=== PATIENT | female | born 1955 | race Caucasian/White ===

== ENCOUNTER → 2018-09-12 | Outpatient (CLI) | payer OTHER ==
[~2018-09-12] MED LIST: ACID CONTROL75 MG PO; ALLERGY RELIEF180 MG PO; AMITRIPTYLINE H25 M3 PO; APAP500 PO; CALCIUM 600 +1 EAC5 PO; CENTRUM COMPLE1 EACH PO; COLACE100 MG PO; ETODOLAC500 MG PO; HYDROCODON-ACE1 EAC5; HYDROCODONE-AP1 EAC6 PO; HYDROCODONE-APA1 TA1 PO; LEVAQUIN 500 M500 M2 PO; LEVOTHYROXIN0.175 MG PO; LEVOXYL PO; LOVENOX; MATZIM LA180 MG PO; MUCINEX600 MG PO; NORCO 10-325 T1 EACH PO; PREMARIN0.625 MG PO; PROBIOTIC1 EAC1 PO; UNICOMPLEX M TA1 TA1 PO; XARELTO10 MG PO; ZANTAC 150MG T150 MG PO; ZOFRAN ODT4 MG DISSOLVE
== END ==
LOC: MRI 08:44
DX: M47.26 Other spondylosis with radiculopathy, lumbar region (principal); M48.05 Spinal stenosis, thoracolumbar region; M51.16 Intervertebral disc disorders with radiculopathy, lumbar region; M79.609 Pain in unspecified limb

== ENCOUNTER → 2018-10-30 | Outpatient (CLI) | payer OTHER ==
[~2018-10-30] VITALS: Ht 165.1 cm; Wt 110.7 kg
[2018-10-30 09:45] VITALS: BP 157/101
--- NOTE | 2018-10-30 09:57 | NUR ---
Pain Clinic Assessment: 1. History of Osteoarthritis: Left Lower Extremity Left Upper Extremity Right Lower Extremity Right Upper Extremity History of Rheumatoid Arthritis: Not Applicable 2. Height: 5 ft. 5 in. 165.1 cm. Weight: 244.0 lb. oz. 110.678 kg. Patient's BMI: 40.6 3. Vital Signs: BP: 157/101 Pulse: 89 Resp: 20 Temp: 02 Sat: 98 ECG Mon: 4. Pain Intensity: 5 5. Fall Risk: Dizziness: N Needs help standing or walking: N Fallen in the last 3 months: N Fall risk comments: 6. Patient on Blood Thinner: None 7. History of Hypertension: N 8. Opioid Therapy greater than 6 weeks: N Opiate Contract Signed: 9. Risk Assessment Tool Provided: LOW 10. Functional Assessment Tool: 11. Recreational Drug Use: Never Drug Type: Tobacco Use: Current Every Day Smoker Tobacco Type: Cigarettes Amount or Packs/day: 1 How Many Years: 20 Alcohol Use: No Frequency: Quant:
--- NOTE | 2018-11-05 14:42 | HPC ---
[facility] [place] [address] PAIN MANAGEMENT CONSULTATION Name: NASIR GALLEGO Room #: REG MARIO Allison#: [id number] Admission: 10/30/18 ������������������ Attend Phys: Yunier Kelley DO Discharge: ������������������ Date of : 57 Report #: [id number] THIS REPORT FOR: //name// CC: Yunier Buitrago DATE OF SERVICE: 10/30/2018 CHIEF COMPLAINT: Left low back pain. HISTORY OF PRESENT ILLNESS: As you know, the patient is a 63-year-old female with longstanding history of low back symptoms that began years ago. She has undergone multiple surgeries to address lumbar radiculopathy. She continues to experience axial back pain located on the left side just above the fusion at the L4-L5 level. She reports the pain level anywhere from 5-10/10 depending on activity. She states her pain intensified in 06/2018, though she denies injury or trauma that may have led to symptom development. She followed up with her neurosurgeon, Dr. Rogelio Buitrago, who believes her symptoms may be related to facet arthropathy. She has been utilizing a foot bracing system during her rehab from left foot fusion and this may have led to her symptom development. She denies specific injury or trauma that may have led to symptom development. She has been referred to our service to discuss possible left L3-L4 intraarticular facet injection to determine if her symptom is generated from that area. The patient indicates today pain is continuous with intermittent exacerbations. She states pain is crushing and sharp when describing pain, places current pain score 5/10, daily average at 7/10, worst pain has been is 10/10. The patient states that walking, bending and lifting exacerbate symptoms, sitting, lying down and pressing her back against the wall tends to improve pain. She has been referred to our service to discuss the possibility of undergoing left L3-L4 intraarticular facet injection. PAST MEDICAL HISTORY: 1. Hypertension. 2. Fibromyalgia. 3. Osteoarthritis. 4. Chronic back symptoms. 5. Peptic ulcer disease. 6. Morbid obesity. PAST SURGICAL HISTORY: 1. Lumbar laminectomy x 2. 2. Lumbar fusion. 3. Cervical laminectomy. [facility] [address] [place] [address] PAIN MANAGEMENT CONSULTATION Name: NASIR GALLEGO Room #: REG [facility].#: [id number] Admission: 10/30/18 ������������������ Attend Phys: Yunier Kelley DO Discharge: ������������������ Date of : 57 Report #: [id number] 4. Bilateral carpal tunnel release. 5. History of brain biopsy. 6. Bilateral foot fusions. 7. Bilateral total knee arthroplasty. SOCIAL HISTORY: The patient is a smoker, 1 pack tobacco per day, has done so for years. Denies IV or illicit drug use. Denies any chronic alcohol use. 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 She is unaccompanied today. REVIEW OF SYSTEMS: Positive for fatigue and weakness, wearing corrective eyewear, shortness of breath with walking or lying flat, changes in bowel movements, nausea, vomiting, constipation interspersed with loose stools, peptic ulcer disease, frequent urination, nocturia, low back pain, excessive thirst, urination, heat and cold intolerance. All other review of systems negative per 12-point review of systems other than those listed in history of present illness. Pain impact score 32 of 70 indicating moderate interference of daily activities secondary to pain. ALLERGIES: OXYCODONE tall. 1. SHELLFISH. CURRENT MEDICATIONS: Ondansetron 4 mg p.r.n., docusate sodium 100 mg per day, hydrocodone 5/325 one tab every 8 hours p.r.n. pain, ranitidine 150 mg per day, multivitamin 1 tab per day, diltiazem 180 mg once a day, levothyroxine 175 mcg per day, amitriptyline 25 mg p.o. at bedtime, estrogen conjugated 0.625 mg once a day, etodolac 500 mg twice a day. IMAGING: MRI of the lumbar spine obtained 09/12/2018 shows advanced multilevel degenerative changes at the L3-L4 level. There is a noted interval fusion of the L4-L5 level. There is [id number] central canal stenosis at T12-L1 with effacement of the ventral thecal sac, severe left-sided neural foraminal narrowing at that level. PHYSICAL EXAMINATION: VITAL SIGNS: Blood pressure 157/101, pulse 89, respiratory rate 20 and unlabored. The patient is 98% on room air. Height 5 feet 5 inches tall, weight 244 pounds, BMI calculated 40.6. GENERAL: Well-developed, well-nourished, well-hydrated, class 3, morbidly obese 63-year-old female, appears stated age, pain is rated today at around 5/10. HEENT: Normocephalic, atraumatic. Pupils equal, round, reactive to light. Extraocular muscles are intact. Sclerae nonicteric without injection. NEUROLOGIC: Cranial nerves 2-12 grossly intact. Speech is fluent. The patient deemed a good historian. LUNGS: Decreased breath sounds bilaterally, prolonged expiratory phase. The patient does smell of tobacco smoke. [facility] [address] [place] [address] PAIN MANAGEMENT CONSULTATION Name: NASIR GALLEGO Room #: REG [facility]#: [id number] Admission: 10/30/18 ������������������ Attend Phys: Yunier Kelley DO Discharge: ������������������ Date of : 57 Report #: [id number] CARDIOVASCULAR: Regular. No appreciable gallop, no rub. ABDOMEN: Soft, obese, nontender. EXTREMITIES: Show no clubbing, no cyanosis, no edema. MUSCULOSKELETAL: The patient does have palpatory tenderness over the paraspinal musculature of lower lumbar spine on the left. Deep palpation in area causes intensification of pain. Well-healed surgical scars. Seated straight leg raising negative. Supine straight leg raising negative. Gloria's test is negative. Modified Gaenslen's positive for axial low back pain. Ankle clonus negative. Babinski is negative. Lumbar provocation testing is met with increased axial back pain on the left. ASSESSMENT: 1. Lumbosacral spondylosis without radiculopathy. 2. Facet arthropathy of the lumbar spine. 3. Chronic intractable pain. PLAN: 1. The patient has been referred to our service by her neurosurgeon, Dr. Rogelio Buitrago to be assessed for possible left L3-L4 intraarticular facet injection. The patient, as you are aware, has had a fusion at the L4-L5 level, which has led to increased arthritic changes at the L3-L4 level, likely contributing to the patient's overall pain. The patient's symptoms are unilateral on the left side and just above the fusion, which would correlate to the L3-L4 level. We have discussed with the patient the treatment options available for facet arthropathy. The following was discussed with the patient. We discussed physical therapy, stretching exercise, core strengthening and weight loss as a treatment option. We discussed also the effects of chronic tobacco use on chronic pain and our desire to have her discontinue this activity as it is contributing significantly to her pain perception. We discussed medication management utilizing nonsteroidal anti-inflammatories. We discussed adjunctive treatment options including myofascial release and acupuncture therapy. We discussed intra-articular facet injections for which the patient was referred to our clinic. We also discussed the possibility of undergoing rhizotomy to ablate the nerve leading to the facet joints at that level. We also discussed surgical fusion other surgical options. After reviewing the risks and benefits of all the proposed treatment options, the patient wishes to move forward with the requested intraarticular facet injection on the left side at the L3-L4 level. The patient was advised that due to third [employer] party payer restrictions, authorization had to be obtained before the patient could undergo the requested left L3, L4, facet injection. This authorization could take anywhere from 4-7 working days. We will begin the process immediately and contact the patient once this has been completed. We will see the patient back in followup visit once we have achieved the authorization for the patient to undergo the left L3, L4, intraarticular facet [address] [address] PAIN MANAGEMENT CONSULTATION Name: NASIR GALLEGO Room #: REG MARIO Cooper#: [id number] Admission: 10/30/18 ������������������ Attend Phys: Yunier Kelley DO Discharge: ������������������ Date of : 57 Report #: [id number] injection. We are hopeful will have the authorization within the next couple of days, so the patient can return to undergo the procedure to determine if her symptoms will be amenable to such procedures or treatment options. We wish to thank Dr. Buitrago for the referral of the patient to our clinic. We will keep you apprised of her response to treatment as we address this facet arthropathy pain. Again, we wish to thank you for the opportunity to see this patient in consultation. ��������������������������������������������� <ELECTRONICALLY SIGNED> ���������������������������������������� By: Yunier Kelley DO ��������������������������������������������� 11/05/18 1442 [id number] Yunier Kelley DO /nt
== END ==
LOC: PAIN 06:50
DX: M47.817 Spondylosis without myelopathy or radiculopathy, lumbosacral region (principal); I10 Essential (primary) hypertension; M19.90 Unspecified osteoarthritis, unspecified site; G89.4 Chronic pain syndrome; Z79.899 Other long term (current) drug therapy; Z91.013 Allergy to seafood

== ENCOUNTER → 2018-11-12 | Outpatient (CLI) | payer OTHER ==
[~2018-11-12] VITALS: Ht 165.1 cm; Wt 108.9 kg
[~2018-11-12] MED LIST changes: +HYDROCODON-ACE1 EAC8 PO
[2018-11-12 14:18] VITALS: BP 142/84
--- NOTE | 2018-11-12 14:38 | NUR ---
Pain Clinic Assessment: 1. History of Osteoarthritis: Left Lower Extremity Left Upper Extremity Right Lower Extremity Right Upper Extremity History of Rheumatoid Arthritis: Not Applicable 2. Height: 5 ft. 5 in. 165.1 cm. Weight: 240.0 lb. oz. 108.864 kg. Patient's BMI: 39.9 3. Vital Signs: BP: 142/84 Pulse: 86 Resp: 20 Temp: 02 Sat: 98 ECG Mon: 4. Pain Intensity: 8 5. Fall Risk: Dizziness: N Needs help standing or walking: Y Fallen in the last 3 months: N Fall risk comments: 6. Patient on Blood Thinner: None 7. History of Hypertension: N 8. Opioid Therapy greater than 6 weeks: N Opiate Contract Signed: 9. Risk Assessment Tool Provided: LOW 10. Functional Assessment Tool: 11. Recreational Drug Use: Never Drug Type: Tobacco Use: Current Every Day Smoker Tobacco Type: Cigarettes Amount or Packs/day: 1 PACK How Many Years: Alcohol Use: No Frequency: Quant:
--- NOTE | 2018-11-26 07:47 | HPC ---
[facility] [place] [address] PAIN MANAGEMENT CONSULTATION Name: NASIR GALLEGO Room #: REG MARIO Allison#: [id number] Admission: 11/12/18 Attend Phys: Yunier Kelley DO Discharge: Date of : 57 Report #: [id number] THIS REPORT FOR: //name// CC: Yunier Buitrago DATE OF SERVICE: 11/12/2018 REFERRING PHYSICIAN: Dr. Rogelio Buitrago. CHIEF COMPLAINT: Left low back pain. HISTORY OF PRESENT ILLNESS: As you know, the patient is a 63-year-old female with longstanding history of back pain symptoms that began years ago. She was referred to our clinic from Dr. Rogelio Buitrago, her neurosurgeon to trial left L3-L4 intra-articular facet injection. We saw the patient in consultation on 10/30/2018 where we began the prior authorization process for her to undergo the requested injection. We have received authorization for the patient to undergo the procedure today. She is placing pain today at 8/10. She has denied any new injury or trauma since our visit of 10/30/2018. She comes today to undergo left L3-L4 intra-articular facet injection per the request of her neurosurgeon. ALLERGIES: 1. SHELLFISH. 2. OXYCODONE. 3. TALWIN. CURRENT MEDICATIONS: See chart. SOCIAL HISTORY: The patient reports she is a pack a day smoker and has smoked that way for years. Denies IV or illicit drug use. Denies any chronic alcohol use. She is a mortgage processor, working, not receiving workmen's compensation, unaccompanied today. IMAGING: No new imaging available. PHYSICAL EXAMINATION: VITAL SIGNS: Blood pressure 142/84, pulse 86, respiratory rate 20 and unlabored. The patient is 98% on room air. Height 5 feet 5 inches tall, weight 240 pounds, BMI calculated 39.9. GENERAL: Well-developed, well-nourished, well-hydrated exogenously obese 63-year-old female appearing stated age, placing current pain score at 8/10. HEENT: Normocephalic, atraumatic. Pupils equal, round, reactive to light. EXTREMITIES: Show no clubbing, no cyanosis, and no edema. MUSCULOSKELETAL: Lower extremity strength equal and symmetrical 5/5. [address] [address] PAIN MANAGEMENT CONSULTATION Name: NASIR GALLEGO Room #: REG [facility] Allison#: [id number] Admission: 11/12/18 Attend Phys: Yunier Kelley DO Discharge: Date of : 57 Report #: [id number] Well-healed surgical scars over the lumbar spine. Seated straight leg raising negative. Supine straight leg raising negative. Gloria's test negative. Modified Gaenslen's positive for axial low back pain. ASSESSMENT: 1. Lumbosacral spondylosis without radiculopathy. 2. Facet arthropathy of the lumbar spine. 3. Chronic intractable pain. PLAN: 1. The patient returns today in followup visit having received precertification to undergo left L3-L4 intra-articular facet injection under fluoroscopic guidance. The patient and I discussed at length today the risks and the benefits of this procedure. These risks include but are not necessarily limited to bleeding, bruising, infection, worsening pain, no relief of pain, also risk of temporary or permanent muscle weakness, temporary or permanent nerve damage, possible paralysis and . The patient states understood and wished to proceed. 2. No medication changes made at today's visit. The patient will continue current medical therapy as previously prescribed. 3. We will see the patient back in followup visit on an as needed basis for the next in the series of intra-articular facet injections. She is to contact her neurosurgeon in regard to response to treatment provided. I am pleased to indicate that her VAS score prior to procedure was 8/10, VAS 10 minutes after procedure 0/10. DESCRIPTION OF PROCEDURE: Left L3-L4 intra-articular facet injection under fluoroscopic guidance. This is the first procedure of the first series that the patient is undergoing. After obtaining written consent, the patient was taken back to the fluoroscopy suite and placed in a prone position with a pillow under the abdomen to decrease the lumbar lordosis and to facilitate needle entry into the facet joints. The skin overlying the lumbosacral area was prepped and draped in an aseptic fashion. AP and lateral fluoroscopic imaging was obtained. Optimal position of the fluoroscope occurred when the joint line was first visualized. The facet joints were identified radiographically directed adjacent to the superior articular process of the caudad vertebrae. The skin overlying the target site of injection was anesthetized using 3 mL of 1% lidocaine. A 22 gauge 3.5 inch spinal needle with a bent tip was advanced towards the L3-L4 facet joint on the left side under fluoroscopic guidance. The firm posterior capsule had its characteristic feel and the needle was advanced a few additional millimeters beyond the joint capsule into the joint space, but not into the articular cartilage. After the joint space was entered and aspiration was [address] [address] PAIN MANAGEMENT CONSULTATION Name: NASIR GALLEGO Room #: TRISH [facility]#: [id number] Admission: 11/12/18 Attend Phys: Yunier Kelley DO Discharge: Date of : 57 Report #: [id number] negative for heme or CSF, 0.2 mL of Omnipaque was injected demonstrating a characteristic facet arthrogram. After negative aspiration for heme or CSF, 1.5 mL of a solution containing 1 mL, 40 mg/mL, 40 mg total triamcinolone and 0.5 mL bupivacaine 0.5% was slowly injected at each of one facet. The needle was then removed. There were no apparent complications. The patient tolerated the procedure well and was carefully escorted to the recovery room in stable condition. The VAS was 8/10 before the procedure and 0/10 ten minutes after the procedure. After meeting discharge criteria, the patient was discharged home. All prescriptions provided today were generated electronically. <ELECTRONICALLY SIGNED> By: Yunier Kelley DO 11/26/18 0747 [id number] Yunier Kelley DO /nt
== END | disposition home or self-care (01) ==
LOC: PAIN 06:59
DX: M47.817 Spondylosis without myelopathy or radiculopathy, lumbosacral region (principal); M54.5 Low back pain; M12.88 Other specific arthropathies, not elsewhere classified, other specified site; G89.29 Other chronic pain; E66.9 Obesity, unspecified; F17.210 Nicotine dependence, cigarettes, uncomplicated; Z88.8 Allergy status to other drugs, medicaments and biological substances; Z68.39 Body mass index [BMI] 39.0-39.9, adult; Z79.899 Other long term (current) drug therapy

== ENCOUNTER → 2019-08-01 | Outpatient (CLI) | payer OTHER | LOC: MRI 09:31 | PROVIDERS: ATTEND Family Medicine | DX: M50.13 Cervical disc disorder with radiculopathy, cervicothoracic region (principal); M48.03 Spinal stenosis, cervicothoracic region ==

== ENCOUNTER → 2019-09-30 | Outpatient (CLI) | payer OTHER ==
[~2019-09-30] VITALS: Ht 165.1 cm; Wt 103.4 kg
[~2019-09-30] MED LIST changes: +ACID CONTROLLER10 MG PO; -ZANTAC 150MG T150 MG PO
[2019-09-30 12:28] VITALS: BP 163/94
--- NOTE | 2019-09-30 12:31 | NUR ---
Pain Clinic Assessment: 1. History of Osteoarthritis: Left Lower Extremity Left Upper Extremity Right Lower Extremity Right Upper Extremity History of Rheumatoid Arthritis: Not Applicable 2. Height: 5 ft. 5 in. 165.1 cm. Weight: 228.0 lb. oz. 103.420 kg. Patient's BMI: 37.9 3. Vital Signs: BP: 163/94 Pulse: 89 Resp: 16 Temp: 02 Sat: 98 ECG Mon: 4. Pain Intensity: 6 5. Fall Risk: Dizziness: N Needs help standing or walking: N Fallen in the last 3 months: N Fall risk comments: 6. Patient on Blood Thinner: None 7. History of Hypertension: Y 8. Opioid Therapy greater than 6 weeks: N Opiate Contract Signed: 9. Risk Assessment Tool Provided: LOW 10. Functional Assessment Tool: 11. Recreational Drug Use: Never Drug Type: Tobacco Use: Current Every Day Smoker Tobacco Type: Cigarettes Amount or Packs/day: 1 How Many Years: 25 Alcohol Use: No Frequency: Quant:
--- NOTE | 2019-10-01 11:01 | HPC ---
[facility] [address] [place] [address] PAIN MANAGEMENT CONSULTATION Name: NASIR GALLEGO Room #: REG MARIO Allison#: [id number] Admission: 09/30/19 Attend Phys: Yunier Kelley DO Discharge: Date of : 57 Report #: [id number] THIS REPORT FOR: cc: Yunier Crowley James A. DO Johnson, James E. DO ~ DATE OF SERVICE: 09/30/2019 REFERRING PHYSICIAN: Dr. Rogelio Buitrago. CHIEF COMPLAINT: Neck pain, bilateral upper extremity pain with paresthesias. HISTORY OF PRESENT ILLNESS: As you know, the patient is a 64-year-old female who has been referred to our service by her neurosurgeon, Dr. Yuri You to undergo cervical epidural injections under fluoroscopic guidance to address cervical radiculopathy secondary to cervical spinal stenosis. The patient denies injury or trauma that may have led to symptom development. The patient states pain began 07/21/2019 and progressively worsened. She trialled conservative treatment options, but noted no significant pain improvement. She states that working at her desk and doing paperwork exacerbate symptoms. Putting her arms at her side and lying on her back tends to improve pain. She indicates she has difficulty at night, sleeping due to ongoing pain. She has to be in specific positions due to her gastroesophageal reflux disease and this places her in positions, which exacerbated her neck pain. She indicates pain begins in the neck, radiates to the arms, right greater than left. There is noted numbness, tingling and paresthesias based on her report. She has been referred to our service by her neurosurgeon to undergo cervical epidural injections. The patient indicates today her pain is continuous. She describes the pain as shooting, burning, sharp, numbness and tingling. Places current pain score at 6/10, daily average at 6-8/10, worst pain has been is 10/10. The patient states that riding, lifting and carrying exacerbate symptoms. Pain is improved with cervical extension and straightening both arms at her side. She has been referred to our service to discuss treatment options for cervical radiculopathy including requested cervical epidural injections. PAST MEDICAL HISTORY: 1. Osteoarthritis. 2. Hypertension. 3. Osteoporosis. 4. Peptic ulcer disease. 5. Gastroesophageal reflux disease. PAST SURGICAL HISTORY: [facility] [address] [place] [address] PAIN MANAGEMENT CONSULTATION Name: NASIR GALLEGO Room #: REG CLJeffrey Farmer.#: [id number] Admission: 09/30/19 Attend Phys: Yunier Kelley DO Discharge: Date of : 57 Report #: [id number] 1. Lumbar back surgery x 5. 2. Cervical laminectomy. 3. Brain biopsy. 4. Fusion of the foot. 5. Hysterectomy. 6. Bilateral total knee replacements. 7. Carpal tunnel release x 2. 8. Coccygectomy. SOCIAL HISTORY: The patient is an everyday smoker, smoking 1-pack of tobacco per day. She has done so for 25 years. She denies IV or illicit drug use. Denies any chronic alcohol use. She is working, not receiving workmen's compensation. She is unaccompanied at today's visit. ALLERGIES: TALWIN, PERCODAN, PERCOCET, SHELLFISH. CURRENT MEDICATIONS: Hydrocodone/acetaminophen 7.5/325 one tab every 8 hours p.r.n. for pain, famotidine 10 mg per day, multivitamin 1 tab per day, diltiazem LA 180 mg once a day, levothyroxine 175 mcg per day, amitriptyline 25 mg p.o. at bedtime, Premarin 0.625 mg once a day, etodolac 500 mg twice a day. REVIEW OF SYSTEMS: Positive for neck pain; bilateral lower extremity pain, right greater than left; gastroesophageal reflux disease; osteoarthritis; heat and cold intolerance due to hypothyroidism; insomnia; seasonal allergies. All other review of systems negative per 12-point review of systems other than those listed in history of present illness. Pain impact score 36/70 indicating moderate interference of daily activities secondary to pain. PQRS: The patient has known arthritic changes of the bilateral hips, lumbar spine and cervical spine. No rheumatoid arthritis. She is placing pain intensity at 6/10. She is not a fall risk nor has she had a fall in last 6 months. She is not on blood thinners, but is treated for hypertension. She is on opioids, but not chronic in nature. She has a low opiate addiction potential. Pain impact is 36/70, moderate interference of daily activities secondary to pain. IMAGING: MRI cervical spine obtained 08/01/2019 shows multilevel generalized disk bulging throughout the cervical spine, C3-C4 shows facet hypertrophy compromising the exiting right C4 nerve root. No neural foraminal stenosis on the left. At the C4-C5 mild generalized disk bulge with congenitally narrowed canal, moderate central canal stenosis measuring 7 mm, [id number] left neural foraminal stenosis due to uncovertebral joint hypertrophy, mild right neural foraminal stenosis. C5-C6 shows [id number] left eccentric generalized disk bulge. This combined with congenital narrowing of the canal leads to moderate central canal stenosis. Severe left and [id number]-[id number] right neural foraminal stenosis. C6-C7 shows moderate broad-based disk bulge, [facility] [address] [place] [address] PAIN MANAGEMENT CONSULTATION Name: NASIR GALLEGO Room #: REG [facility]#: [id number] Admission: 09/30/19 Attend Phys: Yunier Kelley DO Discharge: Date of : 57 Report #: [id number] moderate central canal stenosis. Severe neural foraminal stenosis due to uncovertebral joint hypertrophy bilaterally. PHYSICAL EXAMINATION: VITAL SIGNS: Blood pressure 163/94, pulse 89, respiratory rate 16 and unlabored. The patient is 98% on room air. Height 5 feet 5 inches tall, weight 228 pounds, BMI calculated 37.9. GENERAL: Well-developed, well-nourished, well-hydrated exogenously obese 64-year-old female appearing stated age, placing current pain score 6/10. HEENT: Normocephalic, atraumatic. Pupils equal, round and reactive. NEUROLOGIC: Speech fluent. LUNGS: Clear, no wheeze, rhonchi or rales. CARDIOVASCULAR: Regular. No appreciable gallop, no rub. ABDOMEN: Soft, obese, normoactive bowel sounds. EXTREMITIES: Show no clubbing, no cyanosis, and no edema. MUSCULOSKELETAL: Upper extremity strength equal and symmetrical 5/5, intact to light touch from C5 through T1 dermatomes. Deep tendon reflexes are equal and symmetrical at biceps, brachialis and triceps. Spurling's test positive on the right. Muscle bulk and tone is equal and symmetrical in comparing the left upper extremity to right. Cervical range of motion is restricted to mild to the left and moderate to the right. ASSESSMENT: 1. Cervical radiculopathy. 2. Central canal stenosis of the cervical spine. 3. Severe neural foraminal stenosis of the cervical spine. 4. Cervical facet arthropathy. 5. Cervical spondylosis with radiculopathy. 6. Chronic intractable pain. PLAN: 1. Based on today's physical exam and the history the patient has provided, the description the patient uses in regards to pain as well as location of symptoms, the likely source of the patient's pain is a cervical radiculopathy. The patient and I discussed the findings of the physical exam and correlated those to the findings of her MRI dated 08/01/2019. After discussion of the findings of her MRI and the physical exam findings, which took place over an 18-minute period of time, we then discussed the treatment options that would be of benefit to treat cervical radiculopathy. We discussed the following with the patient today. We discussed physical therapy, stretching exercises and traction techniques as a treatment option. The patient apparently has tried this in the past, but did not notice much in its effect, but would consider this as an option if this was the only treatment course. We discussed medication management with suggestions treatment, adding neuropathic pain medication such as amitriptyline, [facility] [address] [place] [address] PAIN MANAGEMENT CONSULTATION Name: NASIR GALLEGO Room #: REG MARIO Cooper#: [id number] Admission: 09/30/19 Attend Phys: Yunier Kelley DO Discharge: Date of : 57 Report #: [id number] nortriptyline, Cymbalta, Lyrica or gabapentin. We discussed cervical epidural injections under fluoroscopic guidance for which the patient was referred to our clinic. We also discussed surgical decompression of the central canal and neural foramen. After reviewing the risks and benefits of all proposed treatment options, the patient chose to move forward with the requested cervical epidural injection. 2. Due to third democrat payer restrictions, authorization will have to be obtained before the patient could undergo a cervical epidural injection. Authorization could take anywhere from 4-7 working days. We will begin this process immediately and contact the patient once it has been completed. We are hopeful we can obtain this authorization quickly and have the patient return to undergo the requested cervical epidural injection. 3. No medication changes made at today's visit. The patient will continue current medical therapy as previously prescribed. 4. We will see the patient back in followup visit for the first in a series of cervical epidural injections once this prior authorization has been completed. 5. We wish to thank Dr. Yuri You for the opportunity to see this patient in consultation. We will keep you apprised of her response to treatment as we address cervical radiculopathy due to central canal and neural foraminal stenosis. Again, we wish to thank Dr. You for the opportunity to see the patient in consultation. <ELECTRONICALLY SIGNED> By: Yunier Kelley DO 10/01/19 1101 [id number] Yunier Kelley DO /nt
== END ==
LOC: PAIN 06:56
PROVIDERS: ATTEND Anesthesiology Pain Medicine
DX: G89.29 Other chronic pain (principal); M48.02 Spinal stenosis, cervical region; M46.82 Other specified inflammatory spondylopathies, cervical region; M47.22 Other spondylosis with radiculopathy, cervical region; M19.90 Unspecified osteoarthritis, unspecified site; I10 Essential (primary) hypertension; M81.0 Age-related osteoporosis without current pathological fracture; K21.9 Gastro-esophageal reflux disease without esophagitis; Z90.710 Acquired absence of both cervix and uterus; Z96.653 Presence of artificial knee joint, bilateral; Z98.890 Other specified postprocedural states; Z72.0 Tobacco use; Z88.8 Allergy status to other drugs, medicaments and biological substances; Z68.37 Body mass index [BMI] 37.0-37.9, adult; Z79.891 Long term (current) use of opiate analgesic; Z79.899 Other long term (current) drug therapy

== ENCOUNTER → 2019-10-15 | Outpatient (CLI) | payer OTHER ==
[~2019-10-15] VITALS: Ht 165.1 cm; Wt 103.4 kg
[2019-10-15 14:10] VITALS: BP 157/84
--- NOTE | 2019-10-15 14:17 | NUR ---
Pain Clinic Assessment: 1. History of Osteoarthritis: Left Lower Extremity Left Upper Extremity Right Lower Extremity Right Upper Extremity History of Rheumatoid Arthritis: Not Applicable 2. Height: 5 ft. 5 in. 165.1 cm. Weight: 228.0 lb. oz. 103.420 kg. Patient's BMI: 37.9 3. Vital Signs: BP: 157/84 Pulse: 97 Resp: 20 Temp: 02 Sat: 95 ECG Mon: 4. Pain Intensity: 6 5. Fall Risk: Dizziness: N Needs help standing or walking: N Fallen in the last 3 months: N Fall risk comments: 6. Patient on Blood Thinner: None 7. History of Hypertension: Y 8. Opioid Therapy greater than 6 weeks: N Opiate Contract Signed: 9. Risk Assessment Tool Provided: LOW 10. Functional Assessment Tool: 11. Recreational Drug Use: Never Drug Type: Tobacco Use: Current Every Day Smoker Tobacco Type: Amount or Packs/day: How Many Years: Alcohol Use: No Frequency: Quant:
--- NOTE | 2019-10-22 12:44 | HPC ---
[facility] [address] [place] [address] PAIN MANAGEMENT CONSULTATION Name: NASIR GALLEGO Room #: REG MARIO Allison#: [id number] Admission: 10/15/19 Attend Phys: Yunier Kelley DO Discharge: Date of : 57 Report #: [id number] THIS REPORT FOR: cc: Yunier Crowley James A. DO Johnson, James E. DO ~ DATE OF SERVICE: 10/15/2019 CHIEF COMPLAINT: Neck pain, bilateral upper extremity pain with paresthesias. HISTORY OF PRESENT ILLNESS: As you know, the patient is a 64-year-old female referred to our service by her neurosurgeon, Dr. Yuri You, to trial epidural injection under fluoroscopic guidance to determine if her symptoms of cervical radiculopathy would improve with injection therapy. We have received authorization from the patient's third republican payer to undergo the procedure today. She is placing her pain today at a level of 6/10. She has had no changes in medical history since our visit of 09/30/2019 where she was diagnosed with cervical radiculopathy secondary to central canal stenosis of the cervical spine and neural foraminal stenosis. She indicates no new injury or trauma that led to continuation of pain. ALLERGIES: TALWIN, PERCODAN, PERCOCET, SHELLFISH. CURRENT MEDICATIONS: Hydrocodone, famotidine, multivitamin, diltiazem, levothyroxine, amitriptyline, Premarin, etodolac. SOCIAL HISTORY: The patient denies IV or illicit drug use. Denies any chronic alcohol use. She is an everyday smoker, smoking 1 pack tobacco per day and she has done so for greater than 25 years. She is working, not receiving workmen's compensation, unaccompanied today. IMAGING: No new imaging is available. PQRS: The patient has known arthritic changes of bilateral hips, lumbar spine and cervical spine. No rheumatoid arthritis. Pain today is rated at 6/10. She is not a fall risk nor has she had a fall in last 3 months. She is not on blood thinners, but is treated for hypertension. She is on opioids, has a low opioid addiction potential. Pain impact today 36/70, moderate interference of daily activities secondary to pain. PHYSICAL EXAMINATION: VITAL SIGNS: Blood pressure 157/84, pulse is 97, respiratory rate 20 and unlabored. The patient is 95% on room air. Height 5 feet 5 inches tall, weight 228 pounds, BMI calculated 37.9. GENERAL: Well-developed, well-nourished, well-hydrated 64-year-old female [address] [address] PAIN MANAGEMENT CONSULTATION Name: NASIR GALLEGO Room #: REG CLJeffrey Cooper#: [id number] Admission: 10/15/19 Attend Phys: Yunier Kelley DO Discharge: Date of : 57 Report #: [id number] appearing stated age, pain is rated today at around 6/10. HEENT: Normocephalic, atraumatic. Pupils equal, round and reactive. EXTREMITIES: Show no clubbing, no cyanosis, and no appreciable edema. MUSCULOSKELETAL: Upper extremity strength equal and symmetrical 5/5, intact to light touch from C5 through T1 dermatomes. Spurling's test positive on the right. ASSESSMENT: 1. Cervical radiculopathy. 2. Central canal stenosis of the cervical spine. 3. Severe neural foraminal stenosis of the cervical spine. 4. Cervical facet arthropathy. 5. Cervical spondylosis with radiculopathy. 6. Chronic intractable pain. PLAN: 1. The patient returns today in followup visit having received authorization to undergo cervical epidural injection under fluoroscopic guidance per the request of her neurosurgeon, Dr. Yuri You. The patient has been advised of the risks and the benefits of a cervical epidural injection. These risks include, but are not necessarily limited to; bleeding, bruising, infection, worsening pain, no relief of pain, temporary or permanent muscle weakness, temporary or permanent nerve damage, possible paralysis and . The patient states understood and wished to proceed. 2. No medication changes made at today's visit. The patient will continue current medical therapy as prior prescribed. 3. We will see the patient back in followup visit on an as needed basis for possible next in the series of cervical epidural injections. We have tentatively placed the patient in an appointment in 30 days. PROCEDURE NOTE DESCRIPTION OF PROCEDURE: C7-T1 cervical epidural steroid injection under fluoroscopic guidance. After obtaining written consent, the patient was taken back to fluoroscopy suite, placed in prone position with separate pillows under chest and forehead to decrease cervical lordosis. Skin overlying cervical area then prepped and draped in aseptic fashion. C7-T1 cervical interspace was identified by AP fluoroscopy. Skin and subcutaneous tissue overlying target site injection anesthetized with 3 mL of 1% lidocaine. A 20-gauge 3-1/2 inch Tuohy needle advanced under fluoroscopic guidance towards the epidural space using midline approach. Epidural space identified using loss of resistance to air technique. After negative aspiration for heme or cerebrospinal fluid, 1 mL of Isovue injected. Cervical epidurogram confirmed [address] [address] PAIN MANAGEMENT CONSULTATION Name: NASIR GALLEGO Room #: REG MARIO Cooper#: [id number] Admission: 10/15/19 Attend Phys: Yunier Kelley DO Discharge: Date of : 57 Report #: [id number] using both AP and lateral fluoroscopy. After negative aspiration for heme or cerebrospinal fluid, 5 mL of a solution containing 2 mL 40 mg per mL, 80 mg total triamcinolone along with 3 mL of lidocaine 1% injected slowly. Needle retracted custodial, flushed with 1 mL of 1% lidocaine and then removed. Sterile bandage placed over injection site. No new motor deficits present in the upper extremities following procedure. The patient tolerated procedure well, carefully escorted to recovery room in stable condition. No apparent complications. After meeting discharge criteria, the patient discharged home. <ELECTRONICALLY SIGNED> By: Yunier Kellye DO 10/22/19 1244 [id number] Yunier Kelley DO /nt
== END ==
LOC: PAIN 06:57
PROVIDERS: ATTEND Anesthesiology Pain Medicine
DX: M47.22 Other spondylosis with radiculopathy, cervical region (principal); M48.02 Spinal stenosis, cervical region; G89.29 Other chronic pain; M12.88 Other specific arthropathies, not elsewhere classified, other specified site; Z79.899 Other long term (current) drug therapy; Z91.013 Allergy to seafood; Z88.8 Allergy status to other drugs, medicaments and biological substances; Z87.891 Personal history of nicotine dependence

== ENCOUNTER → 2020-02-16 | Outpatient (CLI) | payer OTHER | LOC: LAB 11:33 | PROVIDERS: ATTEND Family Medicine | DX: Z20.828 Contact with and (suspected) exposure to other viral communicable diseases (principal) ==

== ENCOUNTER 2020-08-10 16:23 | Inpatient (IN) | payer OTHER ==
[~2020-08-10] VITALS: Ht 165.1 cm; Wt 101.6 kg
[~2020-08-10 16:23] MED LIST changes: -TACTINAL325 MG PO
[2020-08-10 16:35] VITALS: BP 164/92
[2020-08-10 17:05] LABS: HEMATOCRIT 46.2 % (37.0-47.0); HEMOGLOBIN 15.2 gm/dL (12.0-15.0); MCH 28.9 pg (26.0-34.0); MCV 87.6 fL (80.0-100.0); PLATELET COUNT 264 thou/uL (150-400); RBC 5.27 mil/uL (4.20-5.00); RDW 13.4 % (10.5-14.5)
[2020-08-10 18:03] LABS: ALBUMIN 3.9 g/dL (3.4-5.0); CALCIUM 9.9 mg/dL (8.5-10.1); CREATININE 0.9 mg/dL (0.6-1.0); POTASSIUM 3.5 mmol/L (3.5-5.1); TOTAL BILIRUBIN 1.1 mg/dL (0.2-1.0); TOTAL PROTEIN 8.2 g/dL (6.4-8.2)
[2020-08-10 18:10] LABS: URINE BLOOD 1+ (Negative); URINE CLARITY CLEAR; URINE COLOR YELLOW; URINE GLUCOSE-RANDOM* NEGATIVE (Negative); URINE KETONES TRACE (Negative); URINE LEUKOCYTES-REFLEX NEGATIVE (Negative); URINE NITRITE-REFLEX NEGATIVE (Negative); URINE PROTEIN (DIPSTICK) 2+ (Negative); URINE SPECIFIC GRAVITY <= 1.005 (1.005-1.035); URINE UROBILINOGEN 0.2 E.U./dl (0.2-1.0)
[2020-08-10 18:11] LABS: ABSOLUTE NEUTROPHILS 26.4 thou/uL (1.4-8.2)
[2020-08-10 18:16] LABS: ICTOTEST (BILI CONFIRMATORY) Negative (Negative); URINE BILIRUBIN NEGATIVE (Negative)
[2020-08-10 18:22] LABS: MUCUS 0-3 Light strn/LPF (None Seen); SQUAMOUS 0-3 Few /LPF (0-3)
[2020-08-10 18:23] LABS: BACTERIA-REFLEX 1-9 Few /HPF (None Seen); CASTS None Seen /LPF (None Seen); CRYSTALS None Seen /LPF (None Seen); URINE RBC >20 Many /HPF (NONE SEEN); URINE WBC-REFLEX 0-5 Rare /HPF (0-5)
[2020-08-10] MEDS ORDERED: TACTINAL325 MG PO (18:55)
[2020-08-10] MEDS ORDERED: MUCINEX600 MG PO (18:55)
[2020-08-10 20:28] VITALS: BP 166/94
[2020-08-10 20:29] VITALS: BP 166/94
[2020-08-10 21:29] VITALS: BP 152/99
--- NOTE | 2020-08-10 22:00 | NUR ---
RECIEVED PT FROM ED . UPON ARRIVAL UNIT PT HAVE NG IN RIGHT NARE TAPED , PLACE NG TO SUCTION 100 ML RETURN, DATA BASE COMPLETED AND ASSESSMENT COMPLETED. DISCUSSED PLAN OF CARE PT VERBALIZED UNDERSTANDING AND AGREEABLE.
[2020-08-11 04:41] VITALS: BP 139/85
[2020-08-11 05:49] LABS: ABSOLUTE NEUTROPHILS 14.7 thou/uL (1.4-8.2); BASOPHILS 0.5 % (0.0-2.0); EOSINOPHILS 0.1 % (0.0-3.0); HEMATOCRIT 45.4 % (37.0-47.0); HEMOGLOBIN 15.2 gm/dL (12.0-15.0); LYMPHOCYTES 8.7 % (24.0-44.0); MCH 29.3 pg (26.0-34.0); MCHC 33.6 g/dL (28.0-37.0); MCV 87.4 fL (80.0-100.0); MONOCYTES 6.7 % (1.0-8.0); RDW 13.4 % (10.5-14.5); WBC 17.5 thou/uL (4.0-11.0)
[2020-08-11 05:58] LABS: PLATELET COUNT 383 thou/uL (150-400)
[2020-08-11 06:05] LABS: CALCIUM 9.2 mg/dL (8.5-10.1); CREATININE 0.8 mg/dL (0.6-1.0); MAGNESIUM 2.5 mg/dL (1.8-2.4); POTASSIUM 3.4 mmol/L (3.5-5.1)
[2020-08-11 07:10] VITALS: BP 128/73
--- NOTE | 2020-08-11 13:43 | NUR ---
ASSESSMENT: CM REVIEWED CHART AND MET WITH PATIENT AT THE BEDSIDE. PT IS ALERT AND ORIENTED X4. PT HAS SBO AND CURRENTLY HAS HG. PT REPORTS SHE LIVES AT HOME WITH HER SISTER IN A HOUSE. PT REPORTS THREE STEPS WITH HANDRAIL TO GET INTO THE HOME BUT ALSO REPORTS HAVING A RAMP. PT REPORTS SHE NORMALLY USES A CANE FOR AMBULATION BUT DOES HAVE A WALKER TO USE. PT REPORTS HAVING A HANDICAP SHOWER AND HAS A GRAB BAR AND CHAIR. PT REPORTS HAVING HH IN THE PAST BUT UNSURE THE AGENCY. PT HAS NEVER BEEN TO POST ACUTE CARE. CM DISCUSSED ROLE. PT IS HOPEFUL SHE WILL BE ABLE TO RETURN HOME WITH NO NEEDS. 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 CM WILL CONTINUE TO FOLLOW TO ASSIST NEEDED.
[2020-08-11 15:32] VITALS: BP 143/85
--- NOTE | 2020-08-11 18:41 | NUR ---
PT ALERT AND ORIENTED TIMES FOUR. VSS. NG TUBE INPLACE TO LIWS. PT C/O PAIN AND NEAUSEA. PRN PAIN MEDICATIONS GIVEN WITH GOOD RELEIF. PT UP TO BSC WITH STANDBY ASSIST. WILL CONTINUE TO MONITOR.
[2020-08-11 19:12] VITALS: BP 154/89
[2020-08-12 07:23] VITALS: BP 151/96
[2020-08-12 07:48] LABS: ALBUMIN 3.4 g/dL (3.4-5.0); CREATININE 0.8 mg/dL (0.6-1.0); PHOSPHORUS 3.7 mg/dL (2.6-4.7); POTASSIUM 3.7 mmol/L (3.5-5.1)
[2020-08-12 07:53] LABS: HEMATOCRIT 45.6 % (37.0-47.0); HEMOGLOBIN 15.2 gm/dL (12.0-15.0); MCH 29.3 pg (26.0-34.0); MCHC 33.3 g/dL (28.0-37.0); MCV 88.2 fL (80.0-100.0); RBC 5.17 mil/uL (4.20-5.00); RDW 13.5 % (10.5-14.5); WBC 16.5 thou/uL (4.0-11.0)
[2020-08-12 09:52] VITALS: BP 157/79
--- NOTE | 2020-08-12 12:58 | NUR ---
ON-GOING ASSESSMENT: CM REVIEWED CHART. PT STILL HAS NG AND WILL LIKELY NEED SURGERY. SURGERY IS ON THE CASE. CM WILL CONTINUE TO FOLLOW TO ASSIST NEEDED.
[2020-08-12 17:45] VITALS: BP 151/110
[2020-08-12 19:40] VITALS: BP 149/87
--- NOTE | 2020-08-12 19:56 | NUR ---
PT TRANSFER FROM AND CAME FROM OR DIRECTLY AFTER PROCEDURE OF REMOVING BOWEL OBSTRUCTION. HIGHTOWER INSERTED IN THE OR. HIGHTOWER CARE GIVEN. PATIENT IS A&O*4, 2L OXYGEN, NPO, NG TUBE ON INTERMITENT SUCTION. PATIENT IS IN BEDREST AND HAVE PAIN OF POSTSUGREGY. IV MORPHINE GIVEN ONCE AND IV ABX GIVEN ON THE FLOOR. DUE TO THE MEDICINE WAS NOT AVLIABLE TO GIVE THE IV METOPROLOL, PASSED TO NEGATIVE NOTCHER NURSE ESTUARDO TO GIVE IT TO PATIENT FOR HIGH BLOOD PRESSURE 151/110 AND HIGH HR 110. WILL KEEP MONITOR VS , I&O AND SAFETY.
[2020-08-12 23:24] VITALS: BP 129/86
[2020-08-13 05:15] VITALS: BP 139/79
[2020-08-13 05:25] LABS: HEMOGLOBIN 14.2 gm/dL (12.0-15.0); MCH 29.3 pg (26.0-34.0); MCHC 33.1 g/dL (28.0-37.0); MCV 88.5 fL (80.0-100.0); RBC 4.86 mil/uL (4.20-5.00); RDW 13.6 % (10.5-14.5); WBC 20.2 thou/uL (4.0-11.0)
[2020-08-13 05:40] LABS: ALBUMIN 2.7 g/dL (3.4-5.0); CALCIUM 8.4 mg/dL (8.5-10.1); CREATININE 0.6 mg/dL (0.6-1.0); PHOSPHORUS 2.8 mg/dL (2.5-4.9); POTASSIUM 3.8 mmol/L (3.5-5.1)
--- NOTE | 2020-08-13 06:19 | NUR ---
Pt. reted quietly at intervals during the night when checked on during frequent rounds. Ng tube patent to the right nare and hooked up to lis. No c/o of nausea. Dermabond intact to abdomen and she has a abdominal binder on. Encourage use of IS. She did dangle at the bedside during the night and did well. This am she wanted up in chair and is currently sitting up in the chair. Chair alarm is on. Medicated for c/o abdominal pain (see emar) with some relief noted.
[2020-08-13 07:11] VITALS: BP 125/70
--- NOTE | 2020-08-13 11:43 | NUR ---
Received awake on bed. Due medications given as prescribed. On telemetry; no complains and signs of chest pain, crushing sensation and heaviness. Assisted in ADLs. Vital signs stable. On room air. With NG at R nare- connected to LIS; output measured and recorded accordingly. On nothing per orem- ice chips provided. On blood sugar monitoring every 6 hours, taken and recorded accordingly. With alvares in place, output measured and recorded accordingly. With lap sites, C/D/I- no signs of bleeding and drainage noted. With NS at 100cc/hr, infusing well at L hand. Sitting on the chair. No complains of pain made during assessment. No nausea, no vomiting and no abdominal pain noted. A/w physician's rounds re: diet progression. To continue monitoring patient.
[2020-08-13 12:03] VITALS: BP 140/78
--- NOTE | 2020-08-13 14:13 | NUR ---
Note she been up to recliner chair with assist, has NG to LIS, no bm noted. Discussed during los with hospitalist, possible weekend dc when able to advance diet, active bowels. No anticipated needs at dc. Will cont. following as needed for dc needs.
[2020-08-13 15:40] VITALS: BP 118/63
[2020-08-13 20:03] VITALS: BP 138/77
[2020-08-14 01:03] VITALS: BP 137/88
--- NOTE | 2020-08-14 04:06 | NUR ---
patient admitted for sbo. patient has a clamped ng tube on right nare.patient has abd binder, was not able to see the lap site since patient was in pain. pain controlled this shift. scd on. patient ambulates slowly with steady gaits. fall precaution in place. patient in bed asleep at this time breathing regular and unlaboured.
[2020-08-14 05:03] LABS: HEMATOCRIT 37.3 % (37.0-47.0); HEMOGLOBIN 12.4 gm/dL (12.0-15.0); MCH 29.4 pg (26.0-34.0); MCHC 33.2 g/dL (28.0-37.0); MCV 88.5 fL (80.0-100.0); RBC 4.22 mil/uL (4.20-5.00); RDW 13.5 % (10.5-14.5); WBC 16.5 thou/uL (4.0-11.0)
[2020-08-14 05:26] LABS: ALBUMIN 2.4 g/dL (3.4-5.0); CALCIUM 8.2 mg/dL (8.5-10.1); CREATININE 0.6 mg/dL (0.6-1.0); MAGNESIUM 2.2 mg/dL (1.8-2.4); PHOSPHORUS 2.4 mg/dL (2.6-4.7); POTASSIUM 3.2 mmol/L (3.5-5.1)
[2020-08-14 05:59] VITALS: BP 150/87
[2020-08-14 07:20] VITALS: BP 162/94
[2020-08-14 15:20] VITALS: BP 173/94
--- NOTE | 2020-08-14 18:36 | NUR ---
Assumed pt care in the am, BP elevated managed with medications. Fc in place draining yellow urine. Abdominal binder in place, refused to be opened. Pain is managed with medications. Pt is passing gas. NGT with residual of 20cc, removed as pe MD order. Clears tolerated. Blood sugar checks dc as per order. POC followed. Endorsed to the night nurse.
[2020-08-14 19:15] VITALS: BP 144/79
[2020-08-15 03:15] VITALS: BP 150/92
[2020-08-15 04:56] LABS: ALBUMIN 2.4 g/dL (3.4-5.0); CALCIUM 8.2 mg/dL (8.5-10.1); CREATININE 0.4 mg/dL (0.6-1.0); PHOSPHORUS 2.4 mg/dL (2.5-4.9); POTASSIUM 3.4 mmol/L (3.5-5.1)
--- NOTE | 2020-08-15 06:05 | NUR ---
PT LYING IN BED. MORPHINE PROVIDING PAIN RELIEF. ZOFRAN NAUSEA RELIEF. RESTING COMFORTABLY. NO NEEDS VOICED. CALL LIGHT WITHIN REACH. FREQUENT OBSERVATION.
[2020-08-15 08:21] VITALS: BP 145/90
[2020-08-15 16:03] VITALS: BP 86/52
[2020-08-15 16:05] VITALS: BP 154/80
--- NOTE | 2020-08-15 19:37 | NUR ---
Assumed pt care this am, bp elevated managed with medications. FC removed, pt is able to void on her own. Still no BM despite suppository, passing flatus. Maintained on clear liquids. Pt has beeb belching though abdomen is distended and pt mentioned she feels some acid reflux. MD informed, medications ordered. Midline incision c/d/i. Pain is managed with medication, poc followed. Endorsed to the night nurse.
[2020-08-15 19:50] VITALS: BP 154/84
[2020-08-16 04:32] VITALS: BP 138/57
[2020-08-16 05:22] LABS: HEMATOCRIT 39.9 % (37.0-47.0); HEMOGLOBIN 13.3 gm/dL (12.0-15.0); MCH 29.4 pg (26.0-34.0); MCHC 33.3 g/dL (28.0-37.0); MCV 88.4 fL (80.0-100.0); RBC 4.51 mil/uL (4.20-5.00); RDW 13.2 % (10.5-14.5); WBC 15.8 thou/uL (4.0-11.0)
[2020-08-16 07:51] VITALS: BP 150/98
--- NOTE | 2020-08-16 08:14 | NUR ---
BEGINNING OF SHIFT PT IV WENT BAD. I ATTEMPTED TWICE--BACON STRINGER ATTEMPTED--ALL WITHOUT SUCCESS. PT VERY NAUSEATED AND WAS THROING UP COPIOUS AMOUNTS OF GREEN BILE. DECISION WAS MADE TO HAVE ER NURSE ATTEMPT WITH DOPPLER. CONTACTED SURGEON EXPLAINING THE TURN OF EVENTS. HE GAVE ORDERS TO GAIN IV ACCESS--REINSERT NG TUBE--KUB THIS MORNING. THIS WAS ACCOMPLISHED EVENTUALLY--IV ACCESS--NG TUBE TO INTERMITTENT SUCTION. THE INITIAL OUTPUT WAS 1250 ML WITHIN 15 MINUTES. THE PT FELT IMMEDIATE RELIEF. PAIN AND NAUSEA MEDS GIVEN. THE PT RESTED IN THE RECLINER. WILL CONTINUE TO MONITOR.
--- NOTE | 2020-08-16 08:22 | NUR ---
Assess for length of stay. Admit N/V, SBO and s/p surgical intervention 08/12 for exp lap, lysis adhesions. Has been npo/cl x 6 days. On D5 fluids for hydration. KUB pending today. Wt obese, no wt loss x past year. Will offer ensure clear bid and follow for timely diet advance. Otherwise, low nutrition risk
[2020-08-16 15:00] VITALS: BP 149/78
--- NOTE | 2020-08-16 17:05 | NUR ---
Assessed pt at 7:00 AM. Had NG tube running to intermittent suction. C/o Nausea and pain today meds helped with relief/ Pt is AxOx4, up with assist with GB. Lungs clear. Hypoactive bowel sounds. Pt states she is passing gas. She remains on room air. Last BM was 08/15/20. She has run sinus tachy on tele. Midline insicion is stapled and covered with dermaband with no drainage noted. IV in left AC running D5 at 80/hr. Fall precautions in place Call light is within reach. Will continue to monitor until end of shift.
[2020-08-17 00:53] VITALS: BP 137/68
--- NOTE | 2020-08-17 02:28 | NUR ---
UPON SHIFT ASSESSMENT, PT AOX4. PT REPORTS 4/10 PAIN IN ABDOMEN NEAR MIDLINE SURGICAL SITE WELL BACK. PT RECEIVING PRN IV MORPHINE Q3HR. PT DENIES SOB WHILE ON ROOM AIR. NG TUBE MAINTAINED AND PATENT WITH BROWNISH RED OUTPUT. PT REMAINS NPO. PT WITHOUT NAUSEA OR EMESIS. PT AMBULATING WITH STANDBY ASSIST AND CANE TO BEDSIDE COMMODE, RESTING IN BED OTHERWISE. FREQUENT REPOSITIONING ENCOURAGED WHILE IN BED, PT NOTED TO SHIFT INDEPENDENTLY. SENSATION INTACT, CAPILLARY REFILL LESS THAN 3SEC, AND PERIPHERAL PULSES PALPABLE IN ALL EXTREMITIES. PT ENCOURAGED TO NOTIFY STAFF FOR ALL NEEDS, CALL LIGHT WITHIN REACH, BED ALARM ON, BED LOCKED IN LOWEST POSITION, FREQUENT MONITIRING WILL CONTINUE.
[2020-08-17 05:43] LABS: ABSOLUTE NEUTROPHILS 9.5 thou/uL (1.4-8.2); BASOPHILS 0.8 % (0.0-2.0); EOSINOPHILS 2.4 % (0.0-3.0); HEMATOCRIT 38.4 % (37.0-47.0); HEMOGLOBIN 12.7 gm/dL (12.0-15.0); LYMPHOCYTES 14.9 % (24.0-44.0); MCH 29.3 pg (26.0-34.0); MCV 88.8 fL (80.0-100.0); MONOCYTES 7.6 % (1.0-8.0); PLATELET COUNT 323 thou/uL (150-400); POLYS 74.3 % (36.0-66.0); RBC 4.32 mil/uL (4.20-5.00); RDW 13.6 % (10.5-14.5); WBC 12.8 thou/uL (4.0-11.0)
[2020-08-17 06:03] LABS: ALBUMIN 2.5 g/dL (3.4-5.0); CALCIUM 8.5 mg/dL (8.5-10.1); CREATININE 0.6 mg/dL (0.6-1.0); POTASSIUM 3.1 mmol/L (3.5-5.1); TOTAL BILIRUBIN 1.2 mg/dL (0.2-1.0); TOTAL PROTEIN 6.4 g/dL (6.4-8.2)
[2020-08-17 07:45] VITALS: BP 147/72
--- NOTE | 2020-08-17 15:50 | NUR ---
CARE TEAM INDICATED THAT THE NG TUBE IS TO BE DISCONTINUED THIS AFTERNOON AND PT IS TO REMAIN NPO. IT IS ANTICPATED THAT PT WILL BE ABLE TO RETURN HOME TO SELF CARE ONCE MEDICALLY STABLE. CM FOLLOWING REGARDING DC PLANNING.
[2020-08-17 16:33] VITALS: BP 131/65
--- NOTE | 2020-08-17 19:16 | NUR ---
Assumed pt care at 7am.Pt in bed resting.Assessment completed.vss.Pt has ng to rt nare.Oral care given as needed.Pt left for abd us at noon and returned to room.Dr England here,order noted.Pt kept npo at alltimes.Ng dc'd as ordered. Pt mg today was 1.6 Bolus mag ivpb given as ordered.Pt uses bsc several times but no bm noted.Pt up in chair at present resting and watching tv.Will continue to monitor.
[2020-08-17 21:39] VITALS: BP 128/70
[2020-08-18] VITALS: BP 111/64
[2020-08-18 05:18] VITALS: BP 124/54
--- NOTE | 2020-08-18 05:26 | NUR ---
Assumed pt care at 1900. A/OX4, VSS. C/o abd pain especially with movement, medicated per EMAR with relief reported. Denies N/V, belching and passing flatus. Incision to abd C/D/I. Pt remains NPO with IVF infusing w/o problems. NSR on telemetry. Fall precauitons in place,will continue to monitor pi.
[2020-08-18 06:25] LABS: ALBUMIN 2.7 g/dL (3.4-5.0); CALCIUM 8.6 mg/dL (8.5-10.1); CREATININE 0.5 mg/dL (0.6-1.0); MAGNESIUM 2.1 mg/dL (1.8-2.4); POTASSIUM 3.8 mmol/L (3.5-5.1); TOTAL BILIRUBIN 1.2 mg/dL (0.2-1.0); TOTAL PROTEIN 6.3 g/dL (6.4-8.2)
[2020-08-18 07:52] VITALS: BP 116/37
--- NOTE | 2020-08-18 12:22 | NUR ---
Assumed pt care at 7am.Pt in bed resting.Assessment completed.Pt c/o neck pain with tenderness and very tearful.Emotional support given.Chiara Adam notified. Heating pad ordered and applied with relief.Meds given and well tolerated.Oral care done as needed.Transfered pt to chair after using bsc. Small amt ot dark radha urine noted.Pt still npo but passing gas.Will ask motion picture director to ambulate pt after lunch.No further c/o.Will continue to monitor.
[2020-08-18 16:00] VITALS: BP 129/77
--- NOTE | 2020-08-18 16:36 | NUR ---
CARE TEAM INDICATED THAT PT IS PROGRESSING SLOWLY. IT IS ANTICPATED THAT PT WILL BE MEDICALLY STABLE TO DC HOME ONCE MEDICALLY STABLE. CM FOLLOWING REGARDING DC PLANNING.
[2020-08-18 20:14] VITALS: BP 120/74
--- NOTE | 2020-08-19 03:28 | NUR ---
Assumed pt care at 1900. A/OX4,pleasant. VSS. C/o generalized aches allover,medicated per EMAR. Pt ambulated with financial underwriter twice on the hallway before going to bed;tolorated well. NSR on telemtry. Pt remains NPO,belching and passing flatus had a small soft BM at HS. IV on LAC leaking, reinsrted on RAC after 5 attempts;IVF infusing w/o problems. Fall precatuions in place,calls approp for help. Resting quietly at this time,will continue to monitor pt.
[2020-08-19 07:30] LABS: ALBUMIN 2.3 g/dL (3.4-5.0); CALCIUM 8.1 mg/dL (8.5-10.1); CREATININE 0.6 mg/dL (0.6-1.0); POTASSIUM 3.1 mmol/L (3.5-5.1)
[2020-08-19 07:40] VITALS: BP 123/67
[2020-08-19 15:17] VITALS: BP 140/74
--- NOTE | 2020-08-19 16:38 | NUR ---
PT ADVANCED TO FULL LIQUID DIET. IT IS ANTIPATED THAT PT WILL BE ABLE TO DC HOME ONCE MEDICALLY STABLE.
[2020-08-19 20:01] VITALS: BP 141/85
--- NOTE | 2020-08-20 03:21 | NUR ---
Pt care assumed with Pt in bed during shift change.Pt is a/o x4.Pt is up with x1 assist to the bsc with cane and gait belt.incission site with with dermaband and staple midline lower abd c/d/i.Pt had an accident in the bed .pt denied nausea and vomiting.Pt appear to be in no acute distress.Will continue to monitor per poc
[2020-08-20 05:37] VITALS: BP 134/72
[2020-08-20 07:33] VITALS: BP 136/68
--- NOTE | 2020-08-20 14:35 | NUR ---
Assumed pt care this am. VS stable. Midline incision w/ staple and dermabond, c/d/i. Diet and medications are tolerated well. Diet advanced to regular no issues seen. Pt is anticipating dc today. No nausea and vomiting noted. Awaiting surgeon.
--- NOTE | 2020-08-20 14:39 | NUR ---
Assumed pt care this am, diet advanced to regular no issues encountered. POC followed with no signs or verbalizations of distress noted. Surgical midline incision is c/d/i. No pain , nausea or vomiting noted. Awaiting surgeon visit.
[2020-08-20 15:45] VITALS: BP 130/53
[2020-08-20 16:37] VITALS: BP 130/53
== END 2020-08-20 17:25 | disposition home or self-care (01) | DRG 335 ==
LOC: ER 16:23 → EROBS 18:41 → 4W 18:41 → 4S 18:41 → 4W 08-12 17:36
PROVIDERS: Emergency Medicine; Nurse Practitioner; Surgery; ADMIT Hospitalist; ATTEND Hospitalist
PROC: 0D9670Z Drainage of Stomach with Drainage Device, Via Natural or Artificial Opening (ICD-10-PCS; principal; 2020-08-10)
PROC: 0DNB0ZZ Release Ileum, Open Approach (ICD-10-PCS; 2020-08-12)
DX: K56.609 Unspecified intestinal obstruction, unspecified as to partial versus complete obstruction (principal); E43 Unspecified severe protein-calorie malnutrition; E87.1 Hypo-osmolality and hyponatremia; E87.0 Hyperosmolality and hypernatremia; K56.7 Ileus, unspecified; I10 Essential (primary) hypertension; E03.9 Hypothyroidism, unspecified; I49.9 Cardiac arrhythmia, unspecified; K76.0 Fatty (change of) liver, not elsewhere classified; F17.210 Nicotine dependence, cigarettes, uncomplicated; Z96.653 Presence of artificial knee joint, bilateral; Z20.822 Contact with and (suspected) exposure to COVID-19; Z90.49 Acquired absence of other specified parts of digestive tract; Z90.710 Acquired absence of both cervix and uterus; Z98.1 Arthrodesis status; Z98.42 Cataract extraction status, left eye; Z98.41 Cataract extraction status, right eye; Z79.899 Other long term (current) drug therapy; Z88.8 Allergy status to other drugs, medicaments and biological substances; Z88.5 Allergy status to narcotic agent; Z91.013 Allergy to seafood; Z68.37 Body mass index [BMI] 37.0-37.9, adult
CPT/HCPCS: 10040; 10045; 10195; 50010; 50101; 50386; 50455; 51412; 55075; 56524; 56525; 57092; 58637; 62110; 62900; 70005

== ENCOUNTER → 2020-08-10 | Outpatient (CLI) | payer OTHER ==
[~2020-08-10] MED LIST changes: +TACTINAL325 MG PO
[2020-08-10 13:41] LABS: CREATININE 1.1 mg/dL (0.6-1.0)
== END ==
LOC: CAT 12:41
PROVIDERS: ATTEND Nurse Practitioner
DX: K59.00 Constipation, unspecified (principal); Z90.49 Acquired absence of other specified parts of digestive tract; Z90.710 Acquired absence of both cervix and uterus